=== PATIENT | male | born 1970 | race Caucasian/White ===

== ENCOUNTER 2021-05-15 14:28 | Emergency (ER) | payer BC ==
[~2021-05-15 14:28] MED LIST: FLOMAX0.4 MG PO; TORADOL 10 MG T10 MG PO; ZOFRAN ODT 4 MG4 MG PO
[2021-05-15 15:28] LABS: HEMOGLOBIN 17.5 gm/dl (14.0-17.5); RED BLOOD COUNT 5.69 M/UL (4.20-5.50); WHITE BLOOD COUNT 4.1 K/UL (4.5-11.0)
[2021-05-15] MEDS ORDERED: DELSYM30 MG/5 ML PO (15:39)
[2021-05-15] MEDS ORDERED: ZITHROMAX250 MG PO (15:39)
[2021-05-15] MEDS ORDERED: MEDROL DOSEPAK 24 MG PO (15:39)
[2021-05-15 15:43] LABS: BUN/CREATININE RATIO 12 (0-10)
== END 2021-05-15 20:22 | disposition home or self-care (01) ==
LOC: ER1 14:28
PROVIDERS: Physician Assistant Medical
DX: U07.1 COVID-19 (principal); Z88.2 Allergy status to sulfonamides
CPT/HCPCS: 71045; 80053; 85025; 99283